=== PATIENT | male | born 1950 | race Caucasian/White ===

== ENCOUNTER 2017-04-28 10:14 | Emergency (ER) | payer MEDICARE, OTHER ==
[~2017-04-28] VITALS: Ht 188 cm; Wt 111.1 kg
[2017-04-28] MEDS ORDERED: LISINOPRIL40 MG PO (10:32)
[2017-04-28] MEDS ORDERED: ATORVASTATIN CA10 MG PO (10:33)
[2017-04-28] MEDS ORDERED: AMLODIPINE BESYL5 MG PO (10:33)
[2017-04-28] MEDS ORDERED: HYDROCHLOROTH12.5 MG PO (10:33)
--- NOTE | 2017-04-29 12:06 | EKG ---
[facility] [address] [facility] [place] [address] Signed Normal sinus rhythm Left anterior fascicular block Minimal voltage criteria for LVH, may be normal variant Cannot rule out Anterior infarct , age undetermined Abnormal ECG No previous ECGs available Confirmed by STEVIE GONZALEZ MD ([id number]) on 04/29/2017 12:05:50 PM Electronically Signed By: STEVIE GONZALEZ MD 04/29/17 1206 PATIENT NAME: SONY GALE Electrocardiogram DATE OF : 46 PHYSICIAN: STEVIE GONZALEZ MD REPORT #: [id number] REPORT IS CONFIDENTIAL AND NOT TO BE RELEASED WITHOUT AUTHORIZATION
== END 2017-04-28 11:56 | disposition home or self-care (01) ==
LOC: ED 10:14
DX: T73.3XXA Exhaustion due to excessive exertion, initial encounter (principal); R00.2 Palpitations; I10 Essential (primary) hypertension; Z79.899 Other long term (current) drug therapy; X50.0XXA Overexertion from strenuous movement or load, initial encounter
CPT/HCPCS: 80053; 84484; 85025; 93005; 93010; 99283

== ENCOUNTER 2021-06-21 08:17 | Day surgery (SDC) | payer MEDICARE, OTHER ==
[~2021-06-21] VITALS: Ht 188 cm; Wt 121.0 kg
[~2021-06-21 08:17] MED LIST: AMLODIPINE BESYL5 MG PO; ASPIRIN EC81 MG PO; ATORVASTATIN CA10 MG PO; GLUCOSAMINE &1 EAC1 PO; HYDROCHLOROTH12.5 MG PO; LISINOPRIL40 MG PO; TAMSULOSIN HCL0.4 MG PO
[2021-06-21] MEDS ORDERED: ELIQUIS5 MG PO (08:32)
[2021-06-21] MEDS ORDERED: CARTIA XT120 MG PO (08:34)
[2021-06-21] MEDS ORDERED: LUTEIN20 M1 PO (08:35)
[2021-06-21] MEDS ORDERED: VITAMIN E100 UNI2 PO (08:36)
--- NOTE | 2021-06-21 11:00 | NUR ---
06/21/21 1100 Meme Franco 1052-PATIENT ARRIVED TO PACU ON 2L NC RR EVEN. PATIENT AWAKE DENIES PAIN OR NAUSEA. REPOSITIONS SELF IN BED ABDOMEN SOFT ENCOURAGED TO PASS GAS. IVF INFUSING.
--- NOTE | 2021-06-21 17:24 | OR ---
[facility] [address] [place], [place] [address] Signed DATE OF OPERATION: 06/21/2021 SURGEON: Jonah Damian MD PREOPERATIVE DIAGNOSES: 1. Guaiac-positive stool (2019). 2. Anticoagulation. POSTOPERATIVE DIAGNOSES: 1. Long redundant colon. 2. Moderately poor bowel prep. 3. 3 mm polyp at 30 cm (snare, tattoo). 4. 4 mm polyp at 25 cm. 5. Minimal to moderate internal hemorrhoids. PROCEDURE: Colonoscopy with snare polypectomy, hot biopsy and injection of tattoo. ESTIMATED BLOOD LOSS: None. INDICATIONS: Sony is a 70-year-old gentleman who almost two years ago was positive for Hemoccult on his stool test. Unfortunately, he was having heart issues and needed cardiac ablation at that time. He is now doing better and is maintained with the help of Eliquis. 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 He said he has never had a previous colonoscopy. There is no family history of colon cancer or polyps. He has no lower GI complaints. He said he swims at least every day and does exercise classes at our local athletic club. He maintains a couple of as well. Overall, he said he feels he is in good shape. In the office, I gave him a pamphlet on colonoscopy. He understands the nature of the test. There is risk including, but not limited to gas bloating, crampy abdominal pain, bleeding, perforation requiring surgery, and missed diagnosis. We also discussed the need for IV conscious sedation. He had expressed understanding and wished to proceed. PROCEDURE NOTE: Sony was taken into our endoscopy suite and placed in the left lateral decubitus position. He was given a total of 6 mg of Versed and 100 mcg of fentanyl to cover the case. A digital rectal exam was performed and he is a large man I could just barely get to the bottom of his prostate gland. It does have some induration and enlargement, but Electronically Signed By: JONAH DAMIAN MD 06/21/21 1724 PATIENT NAME: SONY GALE OPERATIVE REPORT DATE OF : 46 REPORT #: [id number] PHYSICIAN: JONAH DAMIAN MD PCP: ADELITA BRAUN MD REPORT IS CONFIDENTIAL AND NOT TO BE RELEASED WITHOUT AUTHORIZATION [facility] [address] [place], [place] [address] Signed no dominant nodule that I could find. The adult colonoscope had been introduced and advanced under direct visualization of the camera. It took a little while to get through his long redundant colon with some extra sedation, abdominal compression and his moderately poor bowel prep. We finally made it up to the cecum itself. We could not quite suction out all these areas because there it was liquid particulate stool matter. We could easily identify his ileocecal valve. The scope was then slowly withdrawn. We took pictures throughout for photodocumentation. We encountered his polyp back at 30 cm. We removed it with two bites of the snare and injected a tattoo underneath that area. At 25 cm was a tiny 4 mm polyp easily removed with a hot biopsy forceps. There was no diverticulosis. The rectum was unremarkable. Upon retroflexion of the scope, he does have minimal to moderate internal hemorrhoid columns. After this, the gas was suctioned out, and the colonoscope removed. Sony tolerated the procedure quite well. RECOMMENDATIONS: I will see Sony back in my office in 7 to 14 days to review his results. He might consider a short interval repeat colonoscopy with a double bowel prep. He will resume the Xarelto in one week following his polypectomies. Jonah Damian MD ALB/MODL /[id number] cc: DO Jonah Orozco MD Gwen Libby, MD Copies: JONAH DAMIAN MD ~ Electronically Signed By: JONAH DAMIAN MD 06/21/21 1724 PATIENT NAME: SONY GALE OPERATIVE REPORT DATE OF : 46 REPORT #: [id number] PHYSICIAN: JONAH DAMIAN MD PCP: ADELITA BRAUN MD REPORT IS CONFIDENTIAL AND NOT TO BE RELEASED WITHOUT AUTHORIZATION
--- NOTE | 2021-06-25 08:34 | PATH ---
[facility] [address] [place], [place] [address] Signed SPECIMEN(S): A POLYP AT 30 CM SPECIMEN(S): B POLYP AT 25 CM SPECIMEN SOURCE: A. POLYP AT 30 CM B. POLYP AT 25 CM CLINICAL HISTORY: Colonoscopy. Guaiac positive stool. FINAL PATHOLOGIC DIAGNOSIS: A. Colon, polyp at 30 cm, polypectomy: - Fragments of tubular adenoma. - Negative for high-grade dysplasia or malignancy. B. Colon, polyp at 25 cm, polypectomy: - Favor cauterized hyperplastic polyp. - Negative for dysplasia or malignancy. - See comment. COMMENT: The cautery artifact present in specimen B limits histologic examination, however a hyperplastic polyp is favored. NAL:cml:C2NR MICROSCOPIC EXAMINATION: Histologic sections of all submitted blocks are examined by light microscopy. These findings, together with the gross examination, support the pathologic diagnosis. GROSS DESCRIPTION: Two specimens are received in two containers, labeled "RH." A. The specimen, labeled "RH, #1 polyp at 30 cm," is received in formalin and consists of two polypoid, hogan soft tissue fragments with vegetative matter that measures 0.7 cm in greatest dimension. The larger polypoid fragment is inked black, bisected, and the specimen is entirely submitted in cassette (A1). B. The specimen, labeled "RH, #2 polyp at 25 cm," is received in formalin and consists of one hogan soft tissue fragment that measures 0.2 cm in greatest dimension. The specimen is entirely submitted in cassette (B1). AT (under the direct supervision of a pathologist) PATIENT NAME: SONY GALE PATHOLOGY DATE OF : 46 REPORT #: [id number] PHYSICIAN: MAICOL DENNEY PCP: ADELITA BRAUN MD REPORT IS CONFIDENTIAL AND NOT TO BE RELEASED WITHOUT AUTHORIZATION [facility] [address] [place] [address] Signed The Gross Description was prepared using a voice recognition system. The report was reviewed for accuracy; however, sound-alike word errors, addition and/or deletions may occur. If there is any question about this report, please contact Client Services. PERFORMING LABORATORY: The technical component was performed by [id number] [address] (Operator Automated Process: Cristal Ruth MD; CLIA# [id number]). Professional interpretation was performed by [facility], [address] [address] (CLIA# [id number]). Diagnostician: Fay Guo MD Pathologist Electronically Signed 06/25/2021 Copies: ~ PATIENT NAME: SONY GALE PATHOLOGY DATE OF : 46 REPORT #: [id number] PHYSICIAN: MAICOL DENNEY PCP: ADELITA BRAUN MD REPORT IS CONFIDENTIAL AND NOT TO BE RELEASED WITHOUT AUTHORIZATION
== END 2021-06-21 11:35 | disposition home or self-care (01) ==
LOC: OPS 08:17 → DS 10:00 → OPS 11:35
PROVIDERS: ATTEND Colon & Rectal Surgery
PROC: 0DBE8ZX Excision of Large Intestine, Via Natural or Artificial Opening Endoscopic, Diagnostic (ICD-10-PCS; 2021-06-21)
PROC: 3E0H8KZ Introduction of Other Diagnostic Substance into Lower GI, Via Natural or Artificial Opening Endoscopic (ICD-10-PCS; 2021-06-21)
PROC: 0DBE8ZX Excision of Large Intestine, Via Natural or Artificial Opening Endoscopic, Diagnostic (ICD-10-PCS; principal; 2021-06-21 10:00)
DX: R19.5 Other fecal abnormalities (principal); D12.6 Benign neoplasm of colon, unspecified; Q43.8 Other specified congenital malformations of intestine; K64.8 Other hemorrhoids; I48.91 Unspecified atrial fibrillation; I10 Essential (primary) hypertension; Z79.01 Long term (current) use of anticoagulants; Z88.8 Allergy status to other drugs, medicaments and biological substances
CPT/HCPCS: 99153; G0500; J2250; J3010; J7121